=== PATIENT | female | born 1950 | race Caucasian/White ===

== ENCOUNTER 2019-02-04 02:38 | Emergency (ER) | payer BC, MEDICARE ==
[~2019-02-04] VITALS: Ht 172.7 cm; Wt 72.0 kg
[2019-02-04] MEDS ORDERED: SODIUM CHLORIDE 0.9% 1,000 ML IV ONE ×2 (04:51→09:15)
[2019-02-04] MEDS ORDERED: ONDANSETRON HCL 4MG/2ML INJ IV STA (04:51)
[2019-02-04] MEDS ORDERED: ASPIRIN 81MG TABLET PO ONE (05:00)
[2019-02-04] MEDS ORDERED: ACETAMINOPHEN 325MG TABLET PO ONE (05:00)
[2019-02-04] MEDS ORDERED: MORPHINE SULFATE 4 MG/ML CPJ (NOT FOR IM USE) IV ONE ×2 (05:00→09:15)
[2019-02-04 05:37] LABS: EOSINOPHILS % 0.3 % (0.0-5.0); HEMATOCRIT. 42.2 % (36.0-48.0); HEMOGLOBIN. 14.4 g/dL (12.0-16.0); MEAN CORPUSCULAR VOLUME 93.7 fL (81.0-99.0); MEAN PLATELET VOLUME 9.2 fl (7.4-10.4); MONOCYTES % 5.1 % (2.0-8.0); NEUTROPHILS % 74.6 % (40.0-76.0); PLATELET 188 x1000/uL (130-400)
[2019-02-04 05:41] LABS: CHLORIDE 107 mEq/L (98-107)
[2019-02-04 05:43] LABS: CLARITY URINE CLEAR (CLEAR); COLOR URINE YELLOW (YELLOW); KETONES URINE 1+ (NEGATIVE); LEUKOCYTE ESTERASE URINE NEGATIVE (NEGATIVE); NITRITE URINE NEGATIVE (NEGATIVE); OCCULT BLOOD URINE NEGATIVE (NEGATIVE); PH URINE 5.5 (4.5-8.0); PROTEIN URINE NEGATIVE (NEGATIVE); SPECIFIC GRAVITY URINE 1.023 (1.005-1.030); UROBILINOGEN URINE 0.2 E.U./dL (0.2-1.0)
[2019-02-04] MEDS ORDERED: ONDANSETRON HCL 4MG/2ML INJ IV ONE (09:15)
[2019-02-04] MEDS ORDERED: IOHEXOL-350 100 ML BOTTLE ONE (09:22)
[2019-02-04] MEDS ORDERED: KETOROLAC 30MG/ML VIAL IV ONE (10:45)
[2019-02-04 11:13] VITALS: BP 162/82
== END 2019-02-04 11:15 | disposition home or self-care (01) ==
LOC: ER 02:38
DX: R51 Headache (principal); R07.2 Precordial pain; M54.2 Cervicalgia; R50.9 Fever, unspecified; R05 Cough; R11.2 Nausea with vomiting, unspecified; E03.9 Hypothyroidism, unspecified; J45.909 Unspecified asthma, uncomplicated; Z88.6 Allergy status to analgesic agent; Z90.710 Acquired absence of both cervix and uterus
CPT/HCPCS: 36415; 71045; 71275; 80053; 81003; 81025; 83880; 84484; 85025; 85379; 93005; 96361; 96374; 96375; 96376; 99284; J1885; J2270; J2405; J7030; Q9967; Z7610